=== PATIENT | male | born 1965 | race Caucasian/White ===

== ENCOUNTER 2022-02-07 08:48 | Day surgery (SDC) | payer BC, MEDICAID ==
[2022-02-07] MEDS ORDERED: Sodium Chloride 0.9% 1,000 ML IV SCH (09:15)
[2022-02-07] MEDS ORDERED: Midazolam 1 MG/ML 2 ML SDV ONE (09:51)
[2022-02-07] MEDS ORDERED: fentaNYL 100 MCG/2 ML SDV ONE (09:51)
[2022-02-07] MEDS ORDERED: Propofol 200 MG/20 ML SDV ONE (09:51)
== END 2022-02-07 11:44 | disposition home or self-care (01) ==
LOC: JP.SDS 08:48
PROVIDERS: ATTEND Surgery
DX: Z12.11 Encounter for screening for malignant neoplasm of colon (principal); D12.0 Benign neoplasm of cecum; D12.5 Benign neoplasm of sigmoid colon; K62.1 Rectal polyp; K57.30 Diverticulosis of large intestine without perforation or abscess without bleeding; I10 Essential (primary) hypertension; E66.9 Obesity, unspecified; Z91.011 Allergy to milk products; Z68.36 Body mass index [BMI] 36.0-36.9, adult
CPT/HCPCS: 45380; J2250; J2704; J3010; J7030; 88305